=== PATIENT | male | born 1930 | race Caucasian/White ===

== ENCOUNTER 2016-07-13 23:33 | Emergency (ER) | payer OTHER ==
--- NOTE | ~2016-07-13 | CT4 ---
[facility] A Service of [facility] & [facility] RADIOLOGY TEXT RESULTS PATIENT: RICCO VILLATORO LOCATION: [facility] : 31 UNIT #: [id number] AGE: [address]: Brandin Horta MD SEX: M ORDER DR: [id number] [facility] [address] [place], [place] [address] [id number] MR#: [id number] Acc #: [id number] NAME: RICCO VILLATORO : 1930 SEX: M STUDY DATE/TIME: 07/13/2016 20:35 UNIT: RUSSELL ROOM: STUDY DESCRIPTION: CT Abd and Pelv Wo Cont Attending Physician: Brandin Horta M.D. Ordering Physician: Luann Naqvi M.D. Primary Care Physician: Vickey Roland M.D. MEDICAL IMAGING REPORT This report is preliminary unless electronic signature is present EXAM CT abdomen and pelvis, 07/13/2016. HISTORY Left flank pain. Left side abdomen pain since Friday treated by PCP on . Pain worse today. TECHNIQUE CT abdomen and pelvis performed without administration of oral or intravascular contrast. This CT exam was performed with one or more of the following radiation dose reduction techniques: automatic exposure control, adjustment of mA and/or kV according to patient size, and iterative reconstruction. COMPARISON STUDIES 05/11/2010 FINDINGS Linear scarring at lung bases. Bronchiectasis at lung bases. These findings are new compared to prior study. Mild cardiac enlargement stable. Liver unremarkable. Post cholecystectomy. No biliary obstruction. Spleen unremarkable. Somewhat atrophic pancreas. No acute pancreatic abnormality. Adrenal glands unremarkable. Nonobstructing right renal calculi, largest measuring approximately 6 mm in lower pole. Right ureter unremarkable. [id number] left hydronephrosis to level of proximal ureteral calculus measuring up to 9 mm in diameter. This is essentially at the ureteropelvic junction. There is mild left perinephric and peripelvic fat stranding and haziness. There are nonobstructing calculi elsewhere in the left kidney, the largest being a near staghorn-type calculus in the lower pole adwoa measuring about 12-13 mm in diameter. Remainder of the left ureter is decompressed. [facility] A Service of [facility] & [facility] RADIOLOGY TEXT RESULTS PATIENT: RICCO VILLATORO LOCATION: [facility] : 31 UNIT #: [id number] AGE: [address]: Brandin Horta MD SEX: M ORDER DR: CT PELVIS: No inguinal adenopathy. The urinary bladder shows mild generalized wall thickening. There is enlarged prostate and the wall thickening may reflect muscular hypertrophy in the context of some degree of chronic bladder outlet obstruction. Multiple bladder calculi are seen. There is at least 1 small calculus within the bladder near the right ureterovesical junction. Possibility of recent right-sided stone passage not excluded. Prostate enlarged as noted. Prostatic calcifications. I see no calcifications along the course of the urethra. No fluid collections in the pelvis. No pelvic or retroperitoneal adenopathy. Small hiatal hernia. Remainder of visualized esophagus, stomach, small bowel unremarkable. Patient is status post appendectomy by history. I believe there is a small appendiceal stump present. The colon shows air and stool throughout its course. Atherosclerotic arterial calcifications without aneurysm. Degenerative changes in spine. No acute-appearing bony abnormality. IMPRESSION 1. There is a 9 mm calculus at the left pyeloureteral junction extending just into the proximal ureter causing moderate left hydronephrosis. Mild left perinephric and peripelvic fat inflammatory change, but no fluid collection. Multiple nonobstructing intrarenal calculi bilaterally. See in home sales representative measurements and locations in body of report above. 2. Multiple bladder calculi present. There is a small perhaps 2 mm calculus near the right ureterovesical junction within the urinary bladder. This raises the possibility of recent right-side stone passage. I see no secondary signs of recent right stone passage. 3. Urinary bladder is normal in volume but there is mild generalized mural prominence. Patient does have an enlarged prostate and the bladder wall prominence may be a reflection of muscular hypertrophy in the context of some degree of chronic bladder outlet obstruction. 4. Status post cholecystectomy and appendectomy. 5. Remainder of alimentary canal unremarkable. 6. Coarse linear areas of scarring and fibrotic change at the lung bases right greater than left, new compared to comparison from 2010. Mild basilar bronchiectasis without wall thickening or mucous plugging also new. 7. Mild cardiac enlargement stable. Dictated by... Chemo Enriquez M.D. THIS IS AN ELECTRONICALLY VERIFIED REPORT Chemo Enriquez M.D. at 07/16/2016 6:09 PM DONNELL/janet TD: 07/14/2016 15:56 [facility] A Service of [facility] RADIOLOGY TEXT RESULTS PATIENT: RICCO VILLATORO LOCATION: [facility] : 31 UNIT #: [id number] AGE: [address]: Brandin Horta MD SEX: M ORDER DR: CONNIE #: [id number] MEDICAL IMAGING REPORT Page 1 of 1 COPY
[2016-07-13 21:43] LABS: BASOPHIL# 0.1 X10e3 (0-0.3); BASOPHIL% 0.7 % (0-2.5); DIFF IND NO; EOSINOPHIL# 0.4 X10e3 (0-0.7); HEMATOCRIT 37.1 % (38.0-50.0); HEMOGLOBIN 12.4 gm/dL (13.0-16.0); LYMPHOCYTE# 1.7 X10e3 (1.0-3.5); LYMPHOCYTE% 15.9 % (17.0-45.0); MEAN CELL VOLUME 95.6 FL (83-96); MEAN CORPUSCULAR HEMOGLOBIN 31.9 PG (28-34); MEAN CORPUSCULAR HGB CONC 33.3 g/dL (30-36); MEAN PLATELET VOLUME 8.5 FL (6.5-11.5); MONOCYTE# 0.9 X10e3 (0-1.0); NEUTROPHIL# 7.7 X10e3 (1.5-7.1); NEUTROPHIL% 71.4 % (40-75); PLATELET COUNT 247 X10e3 (140-420); RED BLOOD COUNT 3.88 X10e (3.90-5.60); RED CELL DISTRIBUTION WIDTH 18.4 % (11.0-15.5); WHITE BLOOD COUNT 10.8 X10e3 (4.0-10.5)
[2016-07-13 22:10] LABS: URINE SOURCE CLEAN CATCH
[2016-07-13 22:14] LABS: ALBUMIN SERUM 4.1 g/dL (3.5-5.0); BILIRUBIN, DIRECT 0.2 mg/dL (0.0-0.2); BILIRUBIN,INDIRECT 0.5 mg/dL (0.0-0.9); BILIRUBIN,TOTAL 0.7 mg/dL (0.2-2.0); BUN/CREATININE RATIO 15.38; CALCIUM SERUM 9.3 mg/dL (8.4-10.2); CREATININE SERUM 1.3 mg/dL (0.6-1.4); GLOM FILT RATE Estimated 49.8 mL/min (>60); POTASSIUM 4.6 mmol/L (3.5-5.1); PROTEIN TOTAL SERUM 7.5 g/dL (6.0-8.3)
[2016-07-13 22:20] LABS: URINE APPEARANCE CLEAR; URINE BILIRUBIN NEG (NEG); URINE BLOOD NEG (NEG); URINE COLOR YELLOW; URINE GLUCOSE NEG (NEG); URINE KETONE NEG (NEG); URINE LEUKOCYTE ESTERASE 1+ (NEG); URINE NITRATE NEG (NEG); URINE PH 5.5 (5-8); URINE PROTEIN NEG (NEG); URINE SPECIFIC GRAVITY 1.017 (1.003-1.035); URINE UROBILINOGEN 0.2 MG/DL (NEG)
[2016-07-13 22:24] LABS: CULTURE INDICATED? YES; U HYALINE CASTS AUWI 0-2 /[LPF]; URBCS1 AUWI 0-2 /[HPF] (0-2); URINE BACTERIA AUWI NEG (NEGATIVE); URINE SQUAMOUS EPITHELIAL CELL NONE SEEN /[HPF]
[~2016-07-13 23:33] MED LIST: CENTRUM SILVER PO; HYDROCODON-ACE1 EAC7 PO; LIPITOR20 MG PO; LOPRESSOR PO; LOTREL 5/20 MG1 CAP PO; METOPROLOL-HCTZ1 TAB PO; NORCO 5/325 TAB1 TAB PO; ZOCOR PO
== END 2016-07-13 23:45 | disposition home or self-care (01) ==
LOC: CED 23:33
PROVIDERS: Student in an Organized Health Care Education/Training Program
DX: N20.0 Calculus of kidney (principal)
CPT/HCPCS: 36415; 74176; 80048; 80076; 81003; 82150; 83605; 83690; 85025; 87086; 99284

== ENCOUNTER 2016-07-15 15:04 | Inpatient (IN) | payer OTHER ==
--- NOTE | ~2016-07-15 | HP ---
Unit #: [id number] #: [id number] Patient: RICCO VILLATORO [id number] [address] [address] [id number] I MR#: [id number] NAME: RICCO VILLATORO ROOM: 473 Age: 86 Sex: M Admission Date: 07/15/2016 : 1930 Attending Physician: Atul Woodruff M.D. Referring Physician: Atul Woodruff M.D. Primary Care Physician: Teresa Mason M.D. HISTORY AND PHYSICAL ADMITTING DIAGNOSES 1. Fevers after ureteroscopy. 2. Left ureteral and renal calculi. HISTORY OF PRESENT ILLNESS The patient is an 86-year-old gentleman who underwent left ureteroscopy last night by my partner, Dr. Woodruff. Postoperatively, he has developed fevers as well as some mild hypoxia requiring four liters nasal cannula. He is being admitted for further management. PAST MEDICAL HISTORY Kidney stones, hypertension. PAST SURGICAL HISTORY As above, appendectomy, cholecystectomy, colonoscopy. MEDICATIONS AT HOME 1. Norvasc. 2. Aspirin. 3. Lipitor. 4. Proscar. 5. Flonase. 6. Zestril. 7. Glimepiride. 8. Claritin. 9. Metoprolol. 10. Protonix. REVIEW OF SYSTEMS Positive for hematuria. Positive for flank pain. Positive for hypoxia, otherwise, negative. PHYSICAL EXAMINATION VITAL SIGNS: T-max 103. T-current 99.7. Blood pressure 129/49. Pulse 72. Sating 92% on four liters nasal cannula. HEENT: Normocephalic, atraumatic. The patient is breathing comfortably. ABDOMEN: Soft, nontender, nondistended. GENITOURINARY: Bello catheter in placed draining bloody urine. EXTREMITIES: No clubbing, cyanosis or edema. DIAGNOSTIC STUDIES Labs are pending. ASSESSMENT AND PLAN Unit #: [id number] #: [id number] Patient: RICCO VILLATORO Fevers and hypoxia after ureteroscopy. Blood and urine cultures have been obtained. We will continue him on Zosyn. We will have Pulmonary and the hospitalist see him as well. We will check a chest x-ray. We will check a CBC and a BMP. Dictated by Gemma Mayorga/zulema TD: 07/16/2016 06:06 JOB #: [id number] HISTORY AND PHYSICAL Page 1 of 1 X Candelario Huerta MD X HISTORY AND PHYSICAL
--- NOTE | ~2016-07-15 | CO ---
Unit #: [id number] #: [id number] Patient: RICCO VILLATORO [id number] [address] [place], [place] [address] [id number] I MR#: [id number] NAME: RICCO VILLATORO ROOM: [facility] Age: 86 Sex: M Admission Date: 07/15/2016 : 1930 Attending Physician: Atul Woodruff M.D. Primary Care Physician: Teresa Mason M.D. Consultation Date: 07/16/2016 CONSULTATION REPORT REASON FOR CONSULTATION Shortness of breath. IMPRESSION 1. Acute hypoxic respiratory failure likely secondary to #2. 2. Acute pulmonary edema concerning for underlying congestive heart failure. 3. Chronic kidney disease stage 3 at baseline. 4. Left pyeloureteral junction stone, status post cystoscopy, laser lithotripsy, and stent placement. 5. Leukocytosis, question reactive versus underlying pneumonia. 6. Normocytic anemia. 7. Diabetes mellitus type 2 non-insulin requiring. 8. Hypertension. 9. Benign prostatic hypertrophy. 10. Hyperlipidemia. 11. Seasonal allergies. 12. Gastroesophageal reflux disease. 13. Benign prostatic hyperplasia. PLAN 1. We will continue the patient on O2 and titrate for sats greater than equal to 90%. Pulmonology is also to see the patient. 2. We will give Lasix 40 mg IV x1 now and then begin q.12 hours Lasix. 3. We will check BMP of blood and lab and also obtain a 2-dimensional echocardiogram. If echo is abnormal, we will consult Cardiology. 4. We will monitor renal function given diuretics. 5. Postoperative care of nephrolithiasis per Urology. 6. Monitor blood counts. 7. We will recheck leukocytosis in the morning. The patient is on empiric Zosyn to cover pneumonia and/or urinary tract infection. 8. We will continue home medications in regard to his diabetes. Obtain Accu-Cheks a.c. and h.s. and provide a low-dose sliding scale. 9. We will place on K-Mag protocol given I anticipate he will have some mild hypokalemia with diuresis. 10. We will check a 12-lead EKG and continue on Holter monitor. HISTORY OF PRESENT ILLNESS Mr. Escamilla is a very nice 86-year-old male, who was in the hospital for an elective left ureteroscopy per Dr. Woodruff due to a left pyeloureteral stone. Unfortunately, postoperatively, the patient developed some significant hypoxia and was requiring 4 L of oxygen per nasal cannula just to maintain sats in the high 80s to low 90s. He also reportedly had a fever in the postop, though I do not have any Unit #: [id number] #: [id number] Patient: RICCO VILLATORO documentation of fever in the vital signs available to me. The patient was subsequently admitted. The patient states he has had a cough for approximately 3 months. It sounds wet, but is nonproductive. This has intermittently been associated with swelling of his legs. He states he has had some weight gain, now he is not sure how much. He denies any fever at home and he is unable to lie flat and thus cannot tell me if he has any dyspnea with lying flat. He denies any chest pain. He denies any palpitations. Chest x-ray done earlier today reveals what appears to be pulmonary edema. We have been asked to see the patient to monitor his diabetes and workup for shortness of breath. PAST MEDICAL HISTORY 1. Nephrolithiasis. This is the patient's second episode of nephrolithiasis. 2. Diabetes mellitus type 2, non-insulin requiring, and reportedly controlled. 3. Hypertension. 4. Hyperlipidemia. 5. Gastroesophageal reflux disease. 6. Seasonal allergies. PAST SURGICAL HISTORY Include appendectomy, cholecystectomy, recent left cystoscopy, ureteroscopy, laser lithotripsy, and stent placement. ALLERGIES Include Levaquin. HOME MEDICATIONS Include Norvasc 10 mg at bedtime, aspirin 81 mg daily, Lipitor 20 mg at bedtime, Proscar 5 mg at bedtime, Flonase 0.05% nasal spray one spray per nostril daily, glimepiride 2 mg every morning, Zestril 40 mg at bedtime, Claritin 10 mg at bedtime, metoprolol tartrate 100 mg b.i.d., and Protonix 40 mg at bedtime. FAMILY HISTORY Significant for some sort of cardiac history and the patient's brother has a transplant I suspect congestive heart failure. Hypertension also runs in the family. SOCIAL HISTORY The patient quit smoking at age 36. He does not drink any alcohol. He is accompanied by his son. REVIEW OF SYSTEMS The patient does complain of shortness of breath and chronic cough. Again, he denies any chest pain or palpitations. He denies any significant abdominal pain. He denies any reflux. He has not had any melena or hematochezia. He is weak at home according to the patient's son, otherwise 10-point review of systems was negative with exception of HPI. PHYSICAL EXAMINATION VITAL SIGNS: Temperature 98.0, blood pressure 114/29, pulse rate 58, respiratory rate 16, oxygen saturation is running anywhere from 88% to 91% on 4 L of oxygen per nasal cannula. Unit #: [id number] #: [id number] Patient: RICCO VILLATORO GENERAL: The patient is awake and alert. He is oriented x3 and very pleasant, appears younger than stated age. HEENT: Pupils are equally round and react to light bilaterally. Anicteric sclerae. No conjunctival pallor. Oropharynx with moist mucous membranes. No erythema or exudate. NECK: Supple. No lymphadenopathy. No thyromegaly. No appreciable JVD. HEART: Occasionally irregular. No murmur, rub, or gallop. LUNGS: Reveal diffuse crackles posteriorly bilaterally. ABDOMEN: Soft and nontender. Questionable distention. Positive bowel sounds. No appreciable hepatosplenomegaly. EXTREMITIES: No cyanosis, clubbing, or edema. Pedal pulses 2/4. SKIN: Warm and moist without rash. NEUROLOGIC: Cranial nerves II through XII intact. Sensation strength and deep tendon reflexes are normal in upper and lower extremities bilaterally grossly. PSYCHIATRIC: Alert and oriented x3. No suicidal or homicidal ideation. MUSCULOSKELETAL: No significant joint abnormalities noted on exam. DIAGNOSTIC STUDIES LABORATORY RESULTS: Lab work done in this morning reveals a white blood cell count 16.5, hemoglobin 10.2, and platelet count of 220,000. Sodium 139, potassium 4.6, chloride 108, bicarb 23, BUN 20, creatinine 1.4, glucose of 142. Urinalysis done on 07/13/2016; 1+ leukocyte esterase, and 5 to 10 wbc's. Urine culture has been negative. EKG reveals normal sinus rhythm without any acute ST or T-wave abnormalities. Thank you for this consultation. We will continue to follow the patient with you. Dictated by... Patricia Sethi M.D. BENNETT/emilio TD: 07/17/2016 03:28 JOB #: [id number] CONSULTATION REPORT Page 1 of 1 X Patricia Sethi MD CONSULTATION REPORT
--- NOTE | ~2016-07-15 | DS ---
Unit #: [id number] #: [id number] Patient: RICCO VILLATORO [id number] [address] [address] [id number] I MR#: [id number] NAME: RICCO VILLATORO ROOM: 473 Age: 86 Sex: M Admission Date: 07/15/2016 : 1930 Discharge Date: 07/19/2016 Attending Physician: Atul Woodruff M.D. Referring Physician: Atul Woodruff M.D. Primary Care Physician: Teresa Mason M.D. DISCHARGE SUMMARY PRIMARY DIAGNOSIS Obstructing ureteral and multiple intrarenal calculi. SECONDARY DIAGNOSES 1. Postoperative respiratory failure associated with fluid overload. 2. Congestive heart failure. PROCEDURE Extensive left ureteroscopy, laser lithotripsy, stent placement, and Bello catheter placement; 07/15/16. CONSULTATION Pulmonary critical care, Dr. Kevin Anna. DISPOSITION Home. FOLLOWUP Follow up in two weeks for outpatient cystoscopy and stent removal. DISCHARGE MEDICATIONS Same as admission medications plus [place] 5/325, #30, 1-2 every 6 hours as needed. HISTORY This 86-year-old man presented with acute left renal colic due to a large upper ureteral stone. He had bladder stones and a large left lower pole stone also. He was admitted and all of these stones taken care of on the evening of admission with an extensive procedure. Postoperatively, he recovered overnight in the recovery room with a catheter in place and, due to persistent low oxygen saturations was admitted. He also had transient fever. He was seen in consultation by pulmonary critical care with congestion on chest x-ray and Zosyn started, but negative cultures and no further fever. He rapidly improved and, on the day of discharge, his catheter is being removed and discharge is expected pending voiding and approval by pulmonary critical care. Note that two sets of urine cultures are negative, white count is normalized, and BMP stable. Any additional discharge antibiotics at the discretion of pulmonary. Dictated by... Atul Woodruff M.D. Unit #: [id number] #: [id number] Patient: RICCO VILLATORO JAMAL/satish TD: 07/18/2016 08:05 JOB #: [id number] DISCHARGE SUMMARY Page 1 of 1 X Atul Woodruff MD DISCHARGE SUMMARY
--- NOTE | ~2016-07-15 | EKG ---
PATIENT: RICCO VILLATORO UNIT #: [id number] Ventricular Rate: 57 BPM Atrial Rate: 57 BPM P-R Interval: 176 ms QRS Duration: 80 ms Q-T Interval: 428 ms QTC Calculation(Bezet): 416 ms P [place]: 91 degrees Calculated R [place]: 33 degrees Calculated T [place]: 63 degrees Diagnosis Line: Sinus bradycardia Diagnosis Line: Poor data quality Diagnosis Line: Nonspecific ST and T wave abnormality Diagnosis Line: Borderline ECG Diagnosis Line: When compared with ECG of 15-JUL-2016 16:19, Diagnosis Line: (unconfirmed) Diagnosis Line: Premature atrial complexes are no longer Present Diagnosis Line: Nonspecific T wave abnormality now evident in Diagnosis Line: Lateral leads Diagnosis Line: Confirmed by TONY FRENCH MD ([id number]) on 07/16/2016 Diagnosis Line: 11:39:55 PM INTERPRETING MD: MANOLO ANDERSON
--- NOTE | ~2016-07-15 | CO ---
Unit #: [id number] #: [id number] Patient: RICCO VILLATORO [id number] [address] [place], [place] [address] [id number] I MR#: [id number] NAME: RICCO VILLATORO ROOM: [facility] Age: 86 Sex: M Admission Date: 07/15/2016 : 1930 Attending Physician: Atul Woodruff M.D. Primary Care Physician: Teresa Mason M.D. CONSULTATION REPORT Mr. Villatoro is an 86-year-old white male who underwent surgery for left ureteral and renal and bladder stones. He underwent cystoscopy with removal of bladder stones, left flexible ureteroscopy with laser lithotripsy of ureteral and renal stones with placement of internal double-J stent and Bello catheter. Postoperatively, he became hypoxemic. Chest x-ray revealed bilateral interstitial infiltrates consistent with CHF. We were asked to see the patient. He has required 4 L per minute nasal cannula. He was admitted, we were asked to see. PAST HISTORY Significant for: 1. Kidney stones. 2. Hypertension. SURGERY 1. Appendectomy. 2. Cholecystectomy. 3. Colonoscopy. HOME MEDICINES 1. Norvasc. 2. Aspirin. 3. Lipitor. 4. Proscar. 5. Flonase. 6. Zestril. 7. Glimepiride. 8. Claritin. 9. Metoprolol. 10. Protonix. 11. Astelin. 12. Flonase. 13. Singulair. REVIEW OF SYSTEMS He has had a cough for the last three months which has been attributed to rhinorrhea, nasal congestion. He is seen by allergists for this. He has no previous history of respiratory failure. He has had no fever and chills at home. No nausea and vomiting. : As noted, does have kidney stones and ureteral stones. NEURO: No unilateral weakness or numbness. SKIN: No rash. No swollen joints. Otherwise unremarkable. Unit #: [id number] #: [id number] Patient: RICCO VILLATORO PHYSICAL EXAMINATION VITAL SIGNS: Blood pressure is 114/29, pulse 58, respiratory 16, afebrile. HEENT: Normocephalic, atraumatic. Pupils equal, round, reactive. Sclerae nonicteric. Nasal passages patent. Posterior pharynx reveals some bruising on the uvula and soft palate. NECK: Supple. Trachea midline. No supraclavicular or cervical adenopathy. LUNGS: Reveals crackles in the bases. CARDIAC: Heart sounds distant. Regular rate and rhythm. Could not appreciate murmur, rub or gallop. ABDOMEN: Nontender. Bowel sounds present. No hepatosplenomegaly. EXTREMITIES: Without clubbing, cyanosis or edema. NEURO: Awake, oriented. Moves all extremities. Affect calm. SKIN: Warm and dry. DIAGNOSTIC STUDIES IMAGING: Chest x-ray personally reviewed as noted. LABORATORY: Chemistries reviewed, unremarkable. Glucose 142. Lactic acid 1.3. TSH 1.19. White blood cell count 16,500, hematocrit 31.4, platelet count normal. Urinalysis - 1+ leukocyte esterase, 5-10 white cells, 0-2 red cells. Urine culture was negative x48 hours. IMPRESSION 1. Hypoxemic respiratory failure. 2. Bilateral pulmonary infiltrates consistent with congestive heart failure. 3. History of cough x3 months with what sounds like upper airway cough syndrome. 4. Leukocytosis. 5. Chronic kidney disease. 6. Left ureteral stent for kidney, ureteral and bladder stones. 7. Diabetes mellitus. 8. Hypertension. PLAN Diuresis, rule out VT. Check LV function with echocardiogram. Followup chest x-ray after diuresis. Continue medications for upper airway cough syndrome. Consider chest CT scan, high resolution, if chest x-ray does not improve with diuresis to rule out the possibility of coexistent interstitial lung disease. Dictated by... Kevin Anna M.D. LESLEY/nicholas TD: 07/17/2016 07:19 JOB #: [id number] Unit #: [id number] #: [id number] Patient: RICCO VILLATORO CONSULTATION REPORT Page 1 of 1 X Kevin Anna MD CONSULTATION REPORT
--- NOTE | ~2016-07-15 | OR ---
Unit #: [id number] #: [id number] Patient: RICCO VILLATORO [id number] [address] [place], [place] [address] [id number] I MR#: [id number] NAME: RICCO VILLATORO ROOM: 473 Date of Procedure: 07/15/2016 Admission Date: 07/15/2016 Surgeon: Atul Woodruff M.D. : 1930 Attending Physician: Atul Woodruff M.D. Referring Physician: Atul Woodruff M.D. Primary Care Physician: Teresa Mason M.D. OPERATIVE REPORT PREOPERATIVE DIAGNOSES Left ureteral and renal stones, bladder stones. POSTOPERATIVE DIAGNOSES Left ureteral and renal stones, bladder stones. PROCEDURES PERFORMED Cystoscopy with removal of bladder stones, left flexible ureteroscopy, holmium laser lithotripsy of ureteral and renal stones, placement of internal double-J stent and Bello catheter. ANESTHESIA General. INDICATIONS FOR PROCEDURE This 86-year-old man, who presented to the office today with a 1-week history of symptomatic upper left ureteral stone with moderate hydronephrosis. Has 1.2 cm of stone in the lower pole of left kidney and stones layered in the bladder as well as an offending 9 mm left upper ureteral stone. He is added on this evening for definitive treatment. DESCRIPTION OF PROCEDURE The patient was given preoperative antibiotics and satisfactory general anesthesia. He was positioned in dorsal lithotomy and the genitalia were prepped and draped. A 21-Korean rigid cystoscope was introduced with a 30-degree lens and video noting bilobar BPH and orifices symmetrically very close to the bladder neck. The bladder was trabeculated and contained fine bright yellow debris as well as several moderate-sized stones indicating chronic trouble emptying. These were washed out and collected for specimen. The left ureteral orifice was entered with a Sensor guidewire and the Lubriglides 8 and 10 were advanced with some snugness. I was not hopeful about that being able to pass a flexible or rigid ureteroscope, but after advancing a dual-lumen catheter and placing a second guidewire, the flexible ureteroscope did advance up to where the offending stone had obviously been pushed up in the kidney. The stone was treated in the upper pole with a 200 nanometer laser fiber. The stone had yellow surface and perhaps there was a sulfur odor, but the internal portion of the stone was markedly hard more consistent with calcium oxalate. The stone was broken down initially at high rate and low power, but ultimately a power Unit #: [id number] #: [id number] Patient: RICCO VILLATORO of 1.4 and a rate of 10 was used to break it down. The lower pole stone was actually a collection of medium-sized stones and could not be reached without first relocating the stones with a Nitinol basket to the upper pole where they were then treated in a similar fashion. This was a prolonged effort and the entire procedure took close to an hour and a half. After leaving no significant fragments, the patient was left with 28 x 6 double-J stent internally to allow proper healing and passage of a fairly large amount of debris. An 18 Bello catheter was placed also. Stone sent for chemical analysis. Dictated by... Gemma Coy/emilio TD: 07/16/2016 02:57 JOB #: [id number] OPERATIVE REPORT Page 1 of 1 X Atul Woodruff MD X PROCEDURE OPERATIVE NOTE
--- NOTE | ~2016-07-15 | CR71 ---
[facility] A Service of [facility] RADIOLOGY TEXT RESULTS PATIENT: RICCO VILLATORO LOCATION: [facility] : 31 UNIT #: [id number] AGE: [address]: Atul Woodruff MD SEX: M ORDER DR: [id number] [place] [facility] [place], [place] [address] [id number] I MR#: [id number] Acc #: [id number] NAME: RICCO VILLATORO : 1930 SEX: M STUDY DATE/TIME: 07/16/2016 3:30 UNIT: [facility] ROOM: [facility] STUDY DESCRIPTION: CR Chest Single View Attending Physician: Atul Woodruff M.D. Referring Physician: Atul Woodruff M.D. Ordering Physician: Atul Woodruff M.D. Primary Care Physician: Teresa Mason M.D. MEDICAL IMAGING REPORT This report is preliminary unless electronic signature is present EXAM Portable chest, 07/16/2016 INDICATION Fever today. PROCEDURE Frontal view chest. COMPARISON 11/25/2008 FINDINGS Mild cardiomegaly. Moderate central pulmonary vascular congestion increased from the prior and there is mild diffuse interstitial prominence. IMPRESSION Findings suggesting CHF including mild cardiomegaly as well as increased central pulmonary vascular congestion and interstitial prominence in both lungs compared with the previous study. Dictated by... Sebastian Corona M.D. THIS IS AN ELECTRONICALLY VERIFIED REPORT Sebastian Corona M.D. at 07/16/2016 10:14 PM EED/justen TD: 07/16/2016 05:13 JOB #: [id number] [facility] A Service of [facility] RADIOLOGY TEXT RESULTS PATIENT: RICCO VILLATORO LOCATION: [facility] 473 : 31 UNIT #: [id number] AGE: [address]: Atul Woodruff MD SEX: M ORDER DR: MEDICAL IMAGING REPORT Page 1 of 1 COPY
--- NOTE | ~2016-07-15 | EKG ---
PATIENT: RICCO VILLATORO UNIT #: [id number] Ventricular Rate: 56 BPM Atrial Rate: 56 BPM P-R Interval: 154 ms QRS Duration: 92 ms Q-T Interval: 448 ms QTC Calculation(Bezet): 432 ms P Enloe: 55 degrees Calculated R Enloe: 19 degrees Calculated T Enloe: 27 degrees Diagnosis Line: Sinus bradycardia with Premature atrial complexes Diagnosis Line: Minimal voltage criteria for LVH, may be normal Diagnosis Line: variant Diagnosis Line: Borderline ECG Diagnosis Line: When compared with ECG of 19-APR-2009 08:01, Diagnosis Line: Premature atrial complexes are now Present Diagnosis Line: Confirmed by TONY FRENCH MD ([id number]) on 07/16/2016 Diagnosis Line: 11:19:09 PM INTERPRETING MD: MANOLO ANDERSON
--- NOTE | ~2016-07-15 | CR63 ---
[facility] A Service of [facility] RADIOLOGY TEXT RESULTS PATIENT: RICCO VILLATORO LOCATION: [facility] : 31 UNIT #: [id number] AGE: [address]: Atul Woodruff MD SEX: M ORDER DR: [id number] [facility] [address] [place], [place] [address] [id number] I MR#: [id number] Acc #: [id number] NAME: RICCO VILLATORO : 1930 SEX: M STUDY DATE/TIME: 07/17/2016 7:23 UNIT: [facility] ROOM: [facility] STUDY DESCRIPTION: CR Chest 2 View Attending Physician: Atul Woodruff M.D. Referring Physician: Atul Woodruff M.D. Ordering Physician: Kevin Anna M.D. Primary Care Physician: Teresa Mason M.D. MEDICAL IMAGING REPORT This report is preliminary unless electronic signature is present EXAM 2 view chest, 07/17/2016. HISTORY Low O2 sats TECHNIQUE PA and lateral radiographs of the chest are presented. COMPARISON AP radiograph, 07/16/2016. FINDINGS Stable mild cardiac enlargement. Decreased pulmonary vascular congestion. Significantly decreased interstitial linear densities and patchy alveolar densities. There continue to be some increased interstitial and patchy alveolar markings in the right upper lobe. There are some minimal areas of linear atelectasis at the left lung base. Findings suggest significantly improved pulmonary edema. Small bilateral pleural effusions remain. No pneumothorax. No acute bony abnormality. Dictated by... Chemo Enriquez M.D. THIS IS AN ELECTRONICALLY VERIFIED REPORT Chemo Enriquez M.D. at 07/18/2016 5:36 PM DONNELL/melissa TD: 07/17/2016 12:43 JOB #: [id number] [facility] A Service of [facility] RADIOLOGY TEXT RESULTS PATIENT: RICCO VILLATORO LOCATION: [facility] : 31 UNIT #: [id number] AGE: [address]: Atul Woodruff MD SEX: M ORDER DR: MEDICAL IMAGING REPORT Page 1 of 1 COPY
[2016-07-15] MEDS ORDERED: NORVASC10 MG PO (16:17)
[2016-07-15] MEDS ORDERED: LOW DOSE ASPIRI81 M2 PO (16:17)
[2016-07-15] MEDS ORDERED: LIPITOR20 MG PO (16:17)
[2016-07-15] MEDS ORDERED: PROSCAR5 MG PO (16:18)
[2016-07-15] MEDS ORDERED: GLIMEPIRIDE2 MG PO (16:20)
[2016-07-15] MEDS ORDERED: FLONASE 0.05% N16 GM (16:20)
[2016-07-15] MEDS ORDERED: ZESTRIL40 MG PO (16:21)
[2016-07-15] MEDS ORDERED: PROTONIX PO (16:22)
[2016-07-15] MEDS ORDERED: METOPROLOL TAR100 MG PO (16:22)
[2016-07-15] MEDS ORDERED: CLARITIN10 M2 PO (16:22)
[2016-07-16 07:22] LABS: BASOPHIL% 0.3 % (0-2.5); DIFF IND YES; EOSINOPHIL% 0.1 % (0.0-7.0); HEMATOCRIT 31.4 % (38.0-50.0); HEMOGLOBIN 10.2 gm/dL (13.0-16.0); LYMPHOCYTE# 0.9 X10e3 (1.0-3.5); LYMPHOCYTE% 5.5 % (17.0-45.0); MEAN CELL VOLUME 96.6 FL (83-96); MEAN CORPUSCULAR HEMOGLOBIN 31.2 PG (28-34); MEAN CORPUSCULAR HGB CONC 32.3 g/dL (30-36); MEAN PLATELET VOLUME 8.6 FL (6.5-11.5); MONOCYTE# 0.8 X10e3 (0-1.0); MONOCYTE% 4.7 % (3.0-12.0); NEUTROPHIL# 14.7 X10e3 (1.5-7.1); NEUTROPHIL% 89.4 % (40-75); PLATELET COUNT 220 X10e3 (140-420); RED BLOOD COUNT 3.25 X10e (3.90-5.60); RED CELL DISTRIBUTION WIDTH 18.3 % (11.0-15.5); WHITE BLOOD COUNT 16.5 X10e3 (4.0-10.5)
[2016-07-16 07:39] LABS: BUN/CREATININE RATIO 14.28; CALCIUM SERUM 8.3 mg/dL (8.4-10.2); CREATININE SERUM 1.4 mg/dL (0.6-1.4); GLOM FILT RATE Estimated 45.5 mL/min (>60); POTASSIUM 4.6 mmol/L (3.5-5.1)
[2016-07-16 08:05] LABS: ANISOCYTOSIS SL; PLATELET ESTIMATE NORMAL (NORMAL)
[2016-07-16] MEDS ORDERED: ZYRTEC10 M1 PO (09:40)
[2016-07-16 17:55] LABS: %MB 1.2 % (0.0-4.0); MB 2.5 ng/ml
[2016-07-16 23:44] LABS: %MB 1.1 % (0.0-4.0)
[2016-07-17 04:57] LABS: BASOPHIL# 0.1 X10e3 (0-0.3); BASOPHIL% 0.6 % (0-2.5); EOSINOPHIL# 0.4 X10e3 (0-0.7); HEMATOCRIT 30.9 % (38.0-50.0); HEMOGLOBIN 10.2 gm/dL (13.0-16.0); LYMPHOCYTE# 1.8 X10e3 (1.0-3.5); LYMPHOCYTE% 14.7 % (17.0-45.0); MEAN CELL VOLUME 95.2 FL (83-96); MEAN CORPUSCULAR HEMOGLOBIN 31.4 PG (28-34); MEAN PLATELET VOLUME 8.7 FL (6.5-11.5); MONOCYTE# 0.6 X10e3 (0-1.0); MONOCYTE% 4.8 % (3.0-12.0); NEUTROPHIL# 9.3 X10e3 (1.5-7.1); NEUTROPHIL% 76.9 % (40-75); PLATELET COUNT 213 X10e3 (140-420); RED BLOOD COUNT 3.25 X10e (3.90-5.60); RED CELL DISTRIBUTION WIDTH 18.4 % (11.0-15.5); WHITE BLOOD COUNT 12.1 X10e3 (4.0-10.5)
[2016-07-17 05:18] LABS: DIFF IND NO
[2016-07-17 06:56] LABS: BUN/CREATININE RATIO 18.57; CALCIUM SERUM 8.6 mg/dL (8.4-10.2); CREATININE SERUM 1.4 mg/dL (0.6-1.4); GLOM FILT RATE Estimated 45.5 mL/min (>60); MAGNESIUM 1.9 mg/dL (1.6-3.0); POTASSIUM 3.5 mmol/L (3.5-5.1)
[2016-07-18 02:58] LABS: BASOPHIL# 0.1 X10e3 (0-0.3); BASOPHIL% 1.1 % (0-2.5); EOSINOPHIL# 0.5 X10e3 (0-0.7); EOSINOPHIL% 4.9 % (0.0-7.0); HEMATOCRIT 32.6 % (38.0-50.0); HEMOGLOBIN 10.9 gm/dL (13.0-16.0); LYMPHOCYTE# 1.6 X10e3 (1.0-3.5); LYMPHOCYTE% 17.1 % (17.0-45.0); MEAN CELL VOLUME 94.9 FL (83-96); MEAN CORPUSCULAR HEMOGLOBIN 31.6 PG (28-34); MEAN CORPUSCULAR HGB CONC 33.3 g/dL (30-36); MEAN PLATELET VOLUME 8.7 FL (6.5-11.5); MONOCYTE# 0.6 X10e3 (0-1.0); MONOCYTE% 5.7 % (3.0-12.0); NEUTROPHIL# 6.9 X10e3 (1.5-7.1); NEUTROPHIL% 71.2 % (40-75); PLATELET COUNT 246 X10e3 (140-420); RED BLOOD COUNT 3.44 X10e (3.90-5.60); RED CELL DISTRIBUTION WIDTH 18.2 % (11.0-15.5); WHITE BLOOD COUNT 9.6 X10e3 (4.0-10.5)
[2016-07-18 03:00] LABS: DIFF IND NO
[2016-07-18 03:24] LABS: BUN/CREATININE RATIO 18.57; CALCIUM SERUM 8.4 mg/dL (8.4-10.2); CREATININE SERUM 1.4 mg/dL (0.6-1.4); GLOM FILT RATE Estimated 45.5 mL/min (>60); POTASSIUM 4.1 mmol/L (3.5-5.1)
[2016-07-18] MEDS ORDERED: FLOMAX0.4 M1 PO (15:32)
[2016-07-18] MEDS ORDERED: MONTELUKAST SOD10 MG PO (15:33)
[2016-07-18] MEDS ORDERED: LORTAB 5-325 M1 EACH PO (15:33)
[2016-07-19 02:29] LABS: HISTO AG URINE SPECIMEN Urine (())
== END 2016-07-18 16:26 | disposition home or self-care (01) | DRG 314 ==
LOC: CSUR 15:04 → CPACUOF 23:00 → C4C 07-16 09:14
PROVIDERS: Internal Medicine; Urology
PROC: 0TF48ZZ Fragmentation in Left Kidney Pelvis, Via Natural or Artificial Opening Endoscopic (ICD-10-PCS; 2016-07-15)
PROC: 0T778DZ Dilation of Left Ureter with Intraluminal Device, Via Natural or Artificial Opening Endoscopic (ICD-10-PCS; 2016-07-15)
PROC: 0T9B80Z Drainage of Bladder with Drainage Device, Via Natural or Artificial Opening Endoscopic (ICD-10-PCS; 2016-07-15)
PROC: 0TF78ZZ Fragmentation in Left Ureter, Via Natural or Artificial Opening Endoscopic (ICD-10-PCS; principal; 2016-07-15 17:00)
PROC: 0TFB8ZZ Fragmentation in Bladder, Via Natural or Artificial Opening Endoscopic (ICD-10-PCS; 2016-07-15 17:00)
DX: I97.131 Postprocedural heart failure following other surgery (principal); J96.01 Acute respiratory failure with hypoxia; I50.31 Acute diastolic (congestive) heart failure; I13.0 Hypertensive heart and chronic kidney disease with heart failure and stage 1 through stage 4 chronic kidney disease, or unspecified chronic kidney disease; N13.2 Hydronephrosis with renal and ureteral calculous obstruction; Z87.442 Personal history of urinary calculi; Z90.49 Acquired absence of other specified parts of digestive tract; Y83.8 Other surgical procedures as the cause of abnormal reaction of the patient, or of later complication, without mention of misadventure at the time of the procedure; Y73.8 Miscellaneous gastroenterology and urology devices associated with adverse incidents, not elsewhere classified; Z79.82 Long term (current) use of aspirin; D72.829 Elevated white blood cell count, unspecified; E11.22 Type 2 diabetes mellitus with diabetic chronic kidney disease; N18.3 Chronic kidney disease, stage 3 (moderate); D64.9 Anemia, unspecified; Z79.84 Long term (current) use of oral hypoglycemic drugs; N40.0 Benign prostatic hyperplasia without lower urinary tract symptoms; E78.5 Hyperlipidemia, unspecified; K21.9 Gastro-esophageal reflux disease without esophagitis; Z88.1 Allergy status to other antibiotic agents; N21.0 Calculus in bladder; E87.6 Hypokalemia
CPT/HCPCS: 71010; 71020; 80048; 82365; 82550; 82553; 82947; 83735; 83880; 84443; 84484; 85025; 87040; 87086; 87385; 88300; 93005; 93306; 94760; 97116; 97162; 97166; 97530; 97535; C1758; C2617; G8978-GP; G8979-GP; G8987-GO; G8988-GO; J0690; J1815; J1940; J2405; J2543; J3010; J3475

== ENCOUNTER → 2016-08-22 | Outpatient (CLI) | payer OTHER ==
[~2016-08-22] MED LIST changes: +CLARITIN10 M2 PO; +FLOMAX0.4 M1 PO; +FLONASE 0.05% N16 GM; +GLIMEPIRIDE2 MG PO; +LORTAB 5-325 M1 EACH PO; +LOW DOSE ASPIRI81 M2 PO; +METOPROLOL TAR100 MG PO; +MONTELUKAST SOD10 MG PO; +NORVASC10 MG PO; +PROSCAR5 MG PO; +PROTONIX PO; +ZESTRIL40 MG PO; +ZYRTEC10 M1 PO
--- NOTE | ~2016-08-22 | US77 ---
[facility] A Service of [facility] RADIOLOGY TEXT RESULTS PATIENT: RICCO VILLATORO LOCATION: [facility] : 31 UNIT #: [id number] AGE: [address]: Atul Woodruff MD SEX: M ORDER DR: [id number] [facility] [address]. [place], [place] [address] [id number] O MR#: [id number] Acc #: [id number] NAME: RICCO VILLATORO : 1930 SEX: M STUDY DATE/TIME: 08/22/2016 12:41 UNIT: [facility] ROOM: STUDY DESCRIPTION: US Kidney Bilateral Complete Attending Physician: Atul Woodruff M.D. Referring Physician: Atul Woodruff M.D. Ordering Physician: Atul Woodruff M.D. Primary Care Physician: Teresa Mason M.D. MEDICAL IMAGING REPORT This report is preliminary unless electronic signature is present EXAM Renal ultrasound INDICATIONS Lithotripsy 2 weeks ago. Renal calculi. Followup. TECHNIQUE Cruz-scale and Doppler imaging of the kidneys and bladder. COMPARISON CT from 07/13/2016. FINDINGS Right kidney measures 11.7 cm in length. Left kidney measures 12.2 cm in length. No hydronephrosis. Bilateral non-obstructing renal calculi. Largest in the left lower pole, measuring up to 1.5 cm. IMPRESSION Non-obstructing calculi in both kidneys, largest in the lower pole of the left kidney. No hydronephrosis. Dictated by... Sebastian Corona M.D. THIS IS AN ELECTRONICALLY VERIFIED REPORT Sebastian Corona M.D. at 08/23/2016 7:02 AM EED/sofie TD: 08/22/2016 18:37 [facility] A Service of [facility] RADIOLOGY TEXT RESULTS PATIENT: RICCO VILLATORO LOCATION: [facility] : 31 UNIT #: [id number] AGE: [address]: Atul Woodruff MD SEX: M ORDER DR: JOB #: [id number] MEDICAL IMAGING REPORT Page 1 of 1 COPY
== END | disposition home or self-care (01) ==
LOC: CGUS 12:02
DX: N13.2 Hydronephrosis with renal and ureteral calculous obstruction (principal); N20.0 Calculus of kidney
CPT/HCPCS: 76770

== ENCOUNTER → 2016-10-23 | Outpatient (CLI) | payer OTHER ==
--- NOTE | ~2016-10-23 | CT71 ---
[facility] A Service of [facility] RADIOLOGY TEXT RESULTS PATIENT: RICCO VILLATORO [facility]: [facility] : 31 UNIT #: [id number] AGE: [address]: TERESA BUTT SEX: M ORDER DR: [id number] [facility] [address]. [place], [place] [address] [id number] O MR#: [id number] Acc #: [id number] NAME: RICCO VILLATORO : 1930 SEX: M STUDY DATE/TIME: 10/23/2016 13:44 UNIT: [facility] ROOM: STUDY DESCRIPTION: CT Head Wo Contrast Attending Physician: Teresa Butt M.D. Referring Physician: Teresa Butt M.D. Primary Care Physician: Teresa Butt M.D. MEDICAL IMAGING REPORT This report is preliminary unless electronic signature is present EXAM Unenhanced head CT, 10/23/2016 PROCEDURE Axial unenhanced head CT. This CT exam was performed with one or more of the following radiation dose reduction techniques: automatic exposure control, adjustment of mA and/or kV according to patient size, and iterative reconstruction. COMPARISON None CLINICAL HISTORY Six month history of dizziness, vertigo and giddiness. FINDINGS There is no intracranial hemorrhage or mass. There is volume loss but no convincing evidence of hydrocephalous or extraaxial fluid collection. There is mild nonspecific white matter change but the extracranial soft tissues, skull base and calvaria are normal though there are intracranial atherosclerotic vascular calcifications. IMPRESSION Volume loss and nonspecific white matter change. No acute intracranial abnormality. Dictated by... Luisito Curtis M.D. THIS IS AN ELECTRONICALLY VERIFIED REPORT Luisito Curtis M.D. at 10/24/2016 5:05 PM SINGH/tiffanie [facility] A Service of [facility] RADIOLOGY TEXT RESULTS PATIENT: RICCO VILLATORO [facility] : 31 UNIT #: [id number] AGE: [address]: TERESA BUTT SEX: M ORDER DR: TD: 10/23/2016 14:53 JOB #: [id number] MEDICAL IMAGING REPORT Page 1 of 1 COPY
== END | disposition home or self-care (01) ==
LOC: CCAT 10-21 11:00
DX: R42 Dizziness and giddiness (principal); R26.9 Unspecified abnormalities of gait and mobility; R93.0 Abnormal findings on diagnostic imaging of skull and head, not elsewhere classified
CPT/HCPCS: 70450

== ENCOUNTER → 2016-12-18 | Outpatient (CLI) | payer OTHER ==
--- NOTE | ~2016-12-18 | CR7 ---
[facility] A Service of [facility] RADIOLOGY TEXT RESULTS PATIENT: RICCO VILLATORO LOCATION: [facility] : 31 UNIT #: [id number] AGE: [address]: Atul Woodruff MD SEX: M ORDER DR: [id number] [facility] [address] [place], [place] [address] [id number] O MR#: [id number] Acc #: [id number] NAME: RICCO VILLATORO : 1930 SEX: M STUDY DATE/TIME: 12/18/2016 15:28 UNIT: [facility] ROOM: STUDY DESCRIPTION: CR Abdomen Single AP View Attending Physician: Atul Woodruff M.D. Referring Physician: Atul Woodruff M.D. Ordering Physician: Atul Woodruff M.D. Primary Care Physician: Teresa Mason M.D. MEDICAL IMAGING REPORT This report is preliminary unless electronic signature is present EXAM AP abdomen DATE 12/18/2016 HISTORY Kidney stones. Symptoms began 6 months ago. COMPARISON Bilateral renal ultrasound 12/18/2016. CT abdomen and pelvis without contrast 07/13/2016. FINDINGS 8 mm stone or cluster of stones projects over the right lower renal pole. Suspected 2 mm stone at the region of the left mid kidney. No definite additional renal calculi are identified; however, it should be recognized that both kidneys are obscured by colonic stool and air. No ureteral calculus is seen. Vascular calcifications are present in the pelvis bilaterally. Marginal osteophyte formation in the lumbar spine. IMPRESSION 8 mm stone at the right lower renal pole. A probable 2 mm stone in the left mid kidney. Remainder of the regions of the kidneys are largely obscured by bowel gas and stool burden. Dictated by... Tiki Hoffmann M.D. THIS IS AN ELECTRONICALLY VERIFIED REPORT Tiki Hoffmann M.D. at 12/20/2016 8:43 AM [facility] A Service of [facility] RADIOLOGY TEXT RESULTS PATIENT: RICCO VILLATORO LOCATION: [facility] : 31 UNIT #: [id number] AGE: [address]: Atul Woodruff MD SEX: M ORDER DR: HIPOLITO/janeth TD: 12/19/2016 23:22 JOB #: [id number] MEDICAL IMAGING REPORT Page 1 of 1 COPY
--- NOTE | ~2016-12-18 | US77 ---
[facility] A Service of [facility] RADIOLOGY TEXT RESULTS PATIENT: RICCO VILLATORO LOCATION: [facility] : 31 UNIT #: [id number] AGE: [address]: Atul Woodruff MD SEX: M ORDER DR: [id number] [facility] [address] [place], [place] [address] [id number] O MR#: [id number] Acc #: [id number] NAME: RICCO VILLATORO : 1930 SEX: M STUDY DATE/TIME: 12/18/2016 14:59 UNIT: [facility] ROOM: STUDY DESCRIPTION: US Kidney Bilateral Complete Attending Physician: Atul Woodruff M.D. Referring Physician: Atul Woodruff M.D. Ordering Physician: Atul Woodruff M.D. Primary Care Physician: Teresa Mason M.D. MEDICAL IMAGING REPORT This report is preliminary unless electronic signature is present EXAM Bilateral renal ultrasound 12/18/2016 HISTORY Follow up bilateral kidney stones. FINDINGS The right kidney measured 11.4 cm, while the left kidney measured 10.8 cm in longitudinal dimensions. There is no evidence of hydronephrosis. There are multiple nonobstructing renal stones bilaterally. No cystic or solid mass lesions are seen on either kidney and there is normal renal cortical echogenicity. Images of the bladder are normal. IMPRESSION 1. Nonobstructing renal stones bilaterally. Otherwise negative renal ultrasound. No evidence of hydronephrosis. 2. Images of the bladder are normal. Dictated by... Colin Jorge M.D. THIS IS AN ELECTRONICALLY VERIFIED REPORT Colin Jorge M.D. at 12/20/2016 7:46 AM TWYLA/milton TD: 12/19/2016 08:57 JOB #: [id number] MEDICAL IMAGING REPORT Page 1 of 1 COPY
[2016-12-18 16:15] LABS: CALCIUM SERUM 9.1 mg/dL (8.4-10.2); CREATININE SERUM 0.9 mg/dL (0.6-1.4); GLOM FILT RATE Estimated 77.6 mL/min (>60); POTASSIUM 4.4 mmol/L (3.5-5.1)
== END | disposition home or self-care (01) ==
LOC: CGUS 14:31
PROVIDERS: Urology
DX: N20.0 Calculus of kidney (principal)
CPT/HCPCS: 74000; 76770; 80048